=== PATIENT | female | born 2000 | race Caucasian/White ===

== ENCOUNTER 2025-03-22 10:01 | Outpatient (AMB) | payer OTHER, SELFPAY ==
--- NOTE | 2025-03-22 10:18 | MHC.OFFVIS ---
Vital Signs 03/22/25 10:22 Height 5 ft 5 in Weight 185 lb BMI 30.8 BP 122/78 Intake Visit Reasons: New patient Annual Medical Radiation Tech: Medical Radiation Tech Present (Melany) Accompanied by: Self / Same As Patient Allergies No Known Allergies Allergy (Verified 03/22/25 10:21) Medication List - Last Reconciled 03/22/25 by Mel Maradiaga CNM amitriptyline 10 mg PO BEDTIME fluoxetine 10 mg PO DAILY HPI HPI New patient Annual: Details: Patient is here for new area field person appointment. She used to go to some body in [place] when she was younger and she was started on control pills at age 17 because she was not getting periods for months and months and months. She knows that PCOS runs in the family and she thinks that she did not have an ultrasound or pelvic exam but she probably had some blood work done but she does not really remember much about it She has been on control pills more or less since except when she ran out from her previous prescription she recently started with a primary care provider through [facility]. That person gave her 1 pack of pills but no more refills until she sought area field person provider so which is why she is here today. She finished her pill pack sometime in mid February and had a period around March 01 she said she was not contraceptive since though she actually has been using condoms. She said that sometimes when she was on pill pack she would get periods at all different times within the pill pack and at other times if she was not taking pills she would not get a period for 8 or 9 months. She does not get increased facial hair or acne or have thinning of her hair at the top of her head. 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 She occasionally gets a random pain on the left side of her abdomen that she thinks is where her ovary is and sometimes it comes the random times sometimes it comes with her. And is associated with menstrual cramping that sometimes she feels in her back She is also gluten intolerance so sometimes it can be diet related. [facility] Medical History (Updated 03/22/25 @ 11:35 by Mel Maradiaga CNM) Migraines Anxiety Family History (Updated 03/22/25 @ 10:19 by Mealny Macdonald MA) Paternal Grandmother Ovarian cancer Breast cancer Maternal Grandmother Breast cancer Social History (Updated 03/22/25 @ 10:20 by Melany Macdonald MA) Household Members: Family Current occupational status: employed Current occupation: [employer] Female Reproductive History Menstrual Age of Menarche: 14 Date of last menstrual period: 02/27/25 control method: none Total pregnancies: 0 Physical Exam Vital Signs: Last Vital Signs BP 122/78 03/22/25 10:22 BMI result Body Mass Index 30.8 Const General: healthy appearing, comfortable, no acute distress, well developed and alert Nutritional Appearance: average body habitus Orientation/consciousness: patient oriented x3 Limitations: no limitations HEENT Head: Yes normocephalic Neck Neck: Yes normal visual inspection Thyroid: Thyroid normal Chest Chest palpation & inspection: normal inspection of the chest Breast/axilla inspection: normal inspection of the breasts and normal inspection of the axillae Breast/axilla palpation: normal palpation of the breasts and normal palpation of the axillae Resp Effort & Inspection: normal respiratory effort GI Inspection: Yes normal to inspection, No Abdominal wall edema and No distended Palpation (GI): Soft to palpation and nontender Other: External exam within normal limits vagina is pink and moist cervix is pink nulliparous smooth healthy appearing normal white mucus consistent with luteal phase uterus midposition mobile nontender nonenlarged adnexa nontender nonenlarged very good tone with Kegel. General: Yes bladder normal to palpation External Female Exam: normal external appearance and normal appearance of the urethra Speculum Exam - Vagina: normal appearance of the vagina, normal palpation and normal vaginal discharge Speculum Exam - Cervix: normal appearance of the cervix, normal palpation and nontender Bimanual exam- vagina & uterus: normal bimanual exam, normal palpation, uterine size normal, bladder normal to palpation, consistency normal, normal palpation, uterine mobility normal, uterine shape normal, No Cervical tenderness present, non-tender and no cervical motion tenderness Bimanual Exam- Adnexa, other: normal adnexae, no masses, normal and No adnexal tenderness Neuro General: patient oriented x3 Assessment & Plan Assessment & Plan (1) History of irregular menstrual bleeding: Comment: In the past she has gone months without a period When she is not on pills Code(s): Z87.42 - Personal history of other diseases of the female genital tract Category: Medical (2) BCP ( control pills) initiation: Code(s): Z30.011 - Encounter for initial prescription of contraceptive pills Category: Medical (3) Cervical cancer screening: Code(s): Z12.4 - Encounter for screening for malignant neoplasm of cervix Category: Medical (4) Screen for sexually transmitted diseases: Code(s): Z11.3 - Encounter for screening for infections with a predominantly sexual mode of transmission Category: Medical Plan -----Discussed in this visit the following: healthy balanced diet, regular and consistent exercise, getting recommended health screens, doing the best she can for her particular health concerns, kegel exercises, pap smear screening and followup recommendations, mammography screening and SBE, normal changes in cycles in her life stage--- . Reviewed the possibility of PCOS and it is imperfect name as a syndrome. Offered patient to have some screening tests for it and swell as a pelvic ultrasound and after some discussion she accepted she can get the labs done whenever she wants at [facility] and she is on the portal so she can review her results she is not interested in blood work for STIs. Reviewed her past history in some detail given the unclear history of pill use and relationship to menses I am giving her the pills that she preferred in the past but I am prescribing the 28 day course because of the importance of going from 1 pill pack to the next including the placebo pills I want her to start the pills with the next very obvious regular menses. If it does not come will cross that bridge then. She is to use condoms until she is protected from with the pills. I am hoping that if we start the pills at the correct time that her menses will eventually line up to the placebo time on the pill reviewed how to use the day of the week sticker as well. Meanwhile we can see her in 3 months to review the ultrasound review the labs and review how she is doing on the pills she had been on the Loestrin lowest dose pills and likes these so that is what I am ordering for her. The only 28 day formulation includes iron with the placebo pills. Reviewed danger signs with OCPs. Orders: Orders DHEA Sulfate Today Z87.42 - Personal history of other diseases of the female genital tract Testosterone, Free/Total Today Z87.42 - Personal history of other diseases of the female genital tract Follicle Stimulating Hormone Today Z87.42 - Personal history of other diseases of the female genital tract Prolactin Today Z87.42 - Personal history of other diseases of the female genital tract Thyroid Stimulating Hormone Today Z87.42 - Personal history of other diseases of the female genital tract US pelvic and transvaginal Today Z87.42 - Personal history of other diseases of the female genital tract Medications: New norethindrone-e.estradiol-iron 1 mg-20 mcg (21)/75 mg (7) (Loestrin Fe 05/30 (28-Day)) 1 tab PO DAILY 84 tabs 4RF Coding Level of Care Code New Pt Prev Care 18-39yr([id number] Diagnoses History of irregular menstrual bleeding Z87.42 BCP ( control pills) initiation Z30.011 Cervical cancer screening Z12.4 Screen for sexually transmitted diseases Z11.3
[2025-03-22 10:22] VITALS: BP 122/78; BMI 30.8
--- OUTSIDE RECORDS SUMMARY | 2025-03-22 11:43 | XMS_ITS | Clinical Summary ---
Author Organization [facility] [address] [place] [address] [place] [phone] Phone Care Team Providers Care Integrity Assessor Name Role Phone Lily Parham MD Primary Care Pr ovider Allergies No known active allergies Medications albuterol HFA (PROAIR HFA ; PROVENTIL HFA ; VENTOLIN HFA) 90 mcg/actuation inhaler Inhale 2 puffs by mouth every 4 (four) hours if needed for shortness of breath or wheezing. 4 Active norethindrone-et hinyl estradiol (MICROGESTIN 05/30) 1-20 mg-mcg per tablet Take 1 tablet by mouth 1 (one) time each day. 30 tablet 5 5 Active amitriptyline (ELAVIL) 10 mg tabletIndication s:Chronic tension-type headache, not intractable Take 1 tablet (10 mg total) by mouth at bedtime. 90 tablet 1 5 Active FLUoxetine (PROzac) 10 mg capsuleIndicatio ns:Anxiety and depression Take 1 capsule (10 mg total) by mouth 1 (one) time each day. 90 capsule 1 5 Active Active Problems Problem Noted Date Diagnosed Date Chronic tension-type headache, not intractable 0 02/01/2025 Anxiety and depression 09/21/2023 Assessment & Plan (04/06/2024 5:17 PM EST): Stable. She will follow up with her insurance regarding getting a therapist Orders: FLUoxetine (PROzac) 10 mg capsule; Take 1 capsule (10 mg total) by mouth 1 (one) time each day. Enlarged tonsils 09/21/2023 Assessment & Plan (04/06/2024 5:17 PM EST): See HPI Counseled on signs and symptoms of peritonsillar abscess and is advised to go to ER if that occurs; there is no evidence of this or pharyngitis on exam. Orders: Ambulatory referral to ENT; Future Mild intermittent asthma without complication Assessment & Plan (04/06/2024 5:17 PM EST): Stable. Continue albuterol PRN Patellofemoral pain syndrome of both knees 09/20 Gluten-sensitive enteropathy 09/21/2023 Lactose intolerance 09/21/2023 Overweight (BMI 25.0-29.9) 09/21/2023 Assessment & Plan (04/06/2024 5:17 PM EST): Counseling provided on dietary changes and exercise Hyperlipidemia 09/21/2023 Assessment & Plan (04/06/2024 5:17 PM EST): Likely familial component Counseling provided on dietary changes and exercise Orders: Lipid panel with reflex to direct LDL; Future Encounters Date Type Department Care Team Description 02/01/2025 4:00 PM EDT Office Visit Adult Medicine [address] [phone] Suzanne Fong PA Anxiety and depression (Primary Dx); Chronic tension-type headache, not intractable; Lump of skin from Last 3 Months Immunizations Immunization Administration Dates Next Due DTaP (Infanrix) 6wks to less than 7yo ,12/13/2003,2002,10/10,2002 HPV 9-valent (Gardisil) 9yo to less than 46yo 04/17/2016,11/01/2015,08/17/2015 Hepatitis A Pediatric (Havri x; Vaqta) 12mo to less than 19yo 04/17/2016,08/17/2015 Hepatitis B Pediatric (Enger ix B; Recombivax HB) to less than 20 yo 02/20/2003,2002,2002 HiB PRP-T conjugate (Acthib, Hiberix) 6wks and older 09/12/2003,2002,2002,08/08 IPV Inactivated polio (Ipol) 6wks and older 07/09/2007,12/13/2003,2002,08/08 Influenza Quadrivalent, 0.5m l, preservative free (Fluarix; FluLaval; Fluzone) ages 6mo and older (Afluria) 3yo and older 04/17/2016 Influenza trivalent, MDCK, 0 .5mL, preservative free (Flucelvax) 6mo and older 02/01/2025,04/06/2024 MMR, measles mumps and rubel la Live (Priorix; M-M-R II) 12mo and older 07/09/2007,09/12/2003 Meningococcal MCV4P 11/25/2019 Meningococcal, Unspecified 08/23/2013 Pneumococcal Conjugate Vacci ne, 7 Valent 2003,2002,2002,08/08 Tdap Tetanus diptheria acell ular pertussis (Boostrix; Adacel) 7yo and older 09/21/2023,08/23/2013 Varicella live (Varivax) 12m o and older 07/09/2007,2003 Surgical History Surgery Date Site/Laterality Comments OTHER SURGICAL HISTORY 2022 PROCEDURE: OUTSIDE ENDOSCOPY; COMMENT: normal Family History Medical History Relation Name Comments Breast cancer Maternal Grandmother Diabetes Mother Other: heart failure Mother Breast cancer Paternal Grandmother Ovarian cancer Paternal Grandmother Colon cancer Neg Hx Relation Name Status Comments Father Alive Maternal Grandfather Maternal Grandmother Alive Mother Alive Paternal Grandfather Paternal Grandmother Social History Tobacco Use Types Packs/Day Years Used Date Smoking Tobacco: Never Smokeless Tobacco: Never Tobacco Cessation:Counseling Given: Not Answered Alcohol Use Standard Drinks/Week Comments Yes 0 (1 standard drink = 0.6 oz pur e alcohol) Comments Unknown Sex and Gender Information Value Date Recorded Sex Assigned at Not on file Legal Sex Female 11:04 AM EDT Gender Identity Not on file Sexual Orientation Not on file Obstetrics History Last Filed Vital Signs Vital Sign Reading Time Taken Comments Blood Pressure 131/77 02/01/2025 3:51 PM EDT A Pulse 75 02/01/2025 3:42 PM EDT Temperature 36.3 C (97.3 F) 02/01/2025 3:42 PM EDT Respiratory Rate 16 02/01/2025 3:42 PM EDT Oxygen Saturation 98% 02/01/2025 3:42 PM EDT Inhaled Oxygen Concentration - - Weight 83 kg (183 lb) 02/01/2025 3:42 PM EDT Height 162.6 cm (5' 4 ) 02/01/2025 3:42 PM EDT Body Mass Index 31.41 02/01/2025 3:42 PM EDT Plan of Treatment Upcoming Encounters Date Type Department Care Team (Late st Contact Info) Description 04/04/2025 4:00 PM EST Office Visit Adult Medicine [address] [phone] Suzanne Fong PA [address] [place] [phone] 08/03/2025 3:30 PM EDT Office Visit Adult Medicine [address] [phone] Suzanne Fong PA [address] [place] [id number] Health Maintenance Due Date Last Done Comments Pneumococcal Vaccine: Pediatrics (0 to 5 Years) and At-Risk Patients (6 to 49 Years) (1 of 1 - PPSV23, PCV20, or PCV21) 2008 2003, 2002, 2002, Additional history exists Meningococcal B Vaccine (1 of 2 - Standard) 2018 Cervical Cancer Screening: Pap Smear 2023 HIV Screening 12/04/2023 Social Influencers of Health Screening 12/04/2023 Depression Screening 05/11/2024 COVID-19 Vaccine ( season) 2025 05/24/2021, 10/16/2020, 09/18/2020 Gonorrhea/Chlamydia Screening 04/08/2025 04/08/2024 Cholesterol Screening (Lipid Panel) 04/08/2029 04/08/2024, 09/21/2023, 09/21/2023 DTaP,Tdap,and Td Vaccines (8 - Td or Tdap) 09/20/2033 09/21/2023, 08/23/2013, 07/09/2007, Additional history exists RSV Immunization Adult Patients (1 - 1-dose 75+ series) 2077 Hepatitis B Vaccines Completed 02/20/2003, 2002, 2002 HIB Vaccines Completed 09/12/2003, 09/2002, 2002, Additional history exists IPV Vaccines Discontinued 07/09/2007, 08/2003, 2002, Additional history exists MMR Vaccines Completed 07/09/2007, 09/12/2003 Varicella Vaccines Completed 07/09/2007, 2003 HPV Vaccines Completed 04/17/2016, 10/10, 08/17/2015 Hepatitis A Vaccines Completed 04/17/2016, 08/17/19 16 Meningococcal ACWY Vaccine Completed 11/25/2019, Hepatitis C Screening Completed 04/08/2024 Influenza Vaccine Completed 02/01/2025, , 04/17/2016 RSV Immunization Patients Under 20 months Aged Out No longer eligible based on patient's age to complete this topic Procedures Procedure Name Priority Date/Time Associated Diagnosis Comments HEPATITIS C ANTIBODY Routine 04/08/2024 12:09 PM EST Need for hepatitis C screening test LIPID PANEL WITH REFLEX TO DIRECT LDL Routine 04/08/2024 12:09 PM EST Mixed hyperlipidemia CHLAMYDIA TRACHOMATIS AND NEISSERIA GONORRHOEAE PCR Routine 04/08/2024 12:09 PM EST Screen for STD (sexually transmitted disease) from Last 3 Months or Most Recently Relevant to Health Maintenance Results * Hepatitis C antibody (04/08/2024 12:09 PM EST) Pathologist [facility] Hepatitis C Antibody Negative Negative LAB CHEMISTRY METHOD 04/08/2024 2:58 PM EST [facility] Blood Venous blood specimen / Unknown Venipuncture / Unknown 04/08/2024 12:09 PM EST 04/08/2024 12:10 PM EST us Lily Parham MD LAB BLOOD ORDERA BLES Final Result [facility] [address] [place] [address], [place] [phone] * (ABNORMAL) Lipid panel with reflex to direct LDL (04/08/2024 12:09 PM EST) [facility] Cholesterol 200 0 - 200 mg/dL LAB CHEMISTRY METHOD 04/08/2024 2:18 PM EST [facility] Triglycerides 104 0 - 150 mg/dL LAB CHEMISTRY METHOD 04/08/2024 2:18 PM EST [facility] HDL 51 >=40 mg/dL LAB CHEMISTRY METHOD 04/08/2024 2:18 PM EST [facility] LDL Calculated 128(H) 0 - 100 mg/dL LAB CHEMISTRY METHOD 04/08/2024 2:[address] [facility] VLDL Cholesterol Gerhard 20.8 mg/dL LAB CHEMISTRY METHOD 04/08/2024 2:[address] [facility] Non HDL Chol. (LDL+VLDL) 149(H) <145 mg/dL LAB CHEMISTRY METHOD 04/08/2024 2:[address] [facility] Chol/HDL Ratio 3.9 0.0 - 4.4 LAB CHEMISTRY METHOD 04/08/2024 2:[address] [facility] Blood Venous blood specimen / Unknown Venipuncture / Unknown 04/08/2024 12:09 PM EST 04/08/2024 12:10 PM EST us Oyinkansola Oyenike Ogundipe MD LAB BLOOD ORDERA BLES Final Result [facility] [address] [place] [address], [place] [phone] * Chlamydia trachomatis and Neisseria gonorrhoeae molecular study (04/08/2024 12:09 PM EST) Neisseria gonorrhoeae PCR Negative Negative LAB MOLECULAR DIAGNOSTICS METHOD 04/08/2024 4:16 PM EST [facility] Chlamydia trachomatis PCR Negative Negative LAB MOLECULAR DIAGNOSTICS METHOD 04/08/2024 4:16 PM EST [facility] Swab Urine specimen from urethra / Unknown Non-blood Collection / Unknown 04/08/2024 12:09 PM EST 04/08/2024 12:10 PM EST Lily Parham MD LAB MICROBIOLOGY - GENERAL ORDERABLES Final Result [facility] [address] [place] [address], [place] [phone] from Last 3 Months or Most Recently Relevant to Health Maintenance Insurance [facility] Care Teams Integrity Assessor Relationship Specialty Start Date End Date Lily Parham MD [address] [place] [phone] PCP - General 09/17/23
== END 2025-03-22 13:31 | disposition home or self-care (01) ==
LOC: HO.HWSM 10:01
PROVIDERS: PCP Family Medicine; Visit Provider Advanced Practice Midwife
DX: Z01.419 Encounter for gynecological examination (general) (routine) without abnormal findings (principal); Z87.42 Personal history of other diseases of the female genital tract; Z30.011 Encounter for initial prescription of contraceptive pills; Z11.3 Encounter for screening for infections with a predominantly sexual mode of transmission
CPT/HCPCS: 99385; 99459

== ENCOUNTER 2025-03-22 10:01 | Outpatient (REF) | payer OTHER, SELFPAY ==
[2025-03-23 03:24] LABS: Bacterial Vaginosis PCR POSITIVE (Negative); Candida Group PCR NOT DETECTED (Not Detect); Candida glab krusei PCR NOT DETECTED (Not Detect); Trichomonas vaginalis PCR NOT DETECTED (Not Detect)
[2025-03-23 03:55] LABS: CT PCR NOT DETECTED (Not Detect.); NG PCR NOT DETECTED (Not Detect.)
== END 2025-03-22 10:02 | disposition home or self-care (01) ==
LOC: HO.LNP 10:01
PROVIDERS: PCP Family Medicine; Visit Provider Advanced Practice Midwife
DX: Z12.4 Encounter for screening for malignant neoplasm of cervix (principal); Z30.011 Encounter for initial prescription of contraceptive pills; Z20.2 Contact with and (suspected) exposure to infections with a predominantly sexual mode of transmission; Z87.42 Personal history of other diseases of the female genital tract
CPT/HCPCS: 81515; 87491; 87591; 88175